=== PATIENT | female | born 1985 | race Caucasian/White ===

== ENCOUNTER → 2018-09-26 | Outpatient (CLI) | payer OTHER ==
[2018-09-26 16:03] LABS: BASO % 1 % (0-3); EOS # 0.1 x10^3/uL (0.0-0.7); EOS % 1 % (0-3); HEMATOCRIT 38.9 % (36.0-47.0); HEMOGLOBIN 12.4 g/dL (12.0-15.5); LYMPH # 1.3 x10^3/uL (1.0-4.8); LYMPH % 24 % (24-48); MEAN CORPUSCULAR HEMOGLOBIN 27 pg (25-35); MEAN CORPUSCULAR HGB CONC 32 g/dL (31-37); MEAN CORPUSCULAR VOLUME 85 fL (79-100); MONO # 0.7 x10^3/uL (0.0-1.1); MONO % 12 % (0-9); NEUT # 3.4 x10^3uL (1.8-7.7); NEUT % 62 % (31-73); PLATELET COUNT 190 x10^3/uL (140-400); RED BLOOD COUNT 4.58 x10^6/uL (3.50-5.40); RED CELL DISTRIBUTION WIDTH 13.1 % (11.5-14.5); WHITE BLOOD COUNT 5.4 x10^3/uL (4.0-11.0)
[2018-09-26 16:27] LABS: ALBUMIN 3.6 g/dL (3.4-5.0); ALBUMIN/GLOBULIN RATIO 1.1 (1.0-1.7); CALCIUM 8.5 mg/dL (8.5-10.1); CREATININE 0.9 mg/dL (0.6-1.0); GFR 71.3; POTASSIUM 3.9 mmol/L (3.5-5.1); TOTAL BILIRUBIN 0.2 mg/dL (0.2-1.0)
--- NOTE | 2018-09-27 10:04 | NUR ---
FAXED PRE - OP TEST REPORTS TO FOR REVIEW 09/27/2018 AT 0985 AND RECEIVED TRANSMITTAL CONFIRMATION.
== END | disposition home or self-care (01) ==
LOC: SURGPAT 14:50
PROVIDERS: ATTEND Obstetrics & Gynecology
DX: N92.0 Excessive and frequent menstruation with regular cycle (principal)
CPT/HCPCS: 36415; 80053; 85025

== ENCOUNTER 2018-10-09 08:41 | Observation (INO) | payer OTHER ==
[2018-10-08 17:30] VITALS: BP 113/67
[~2018-10-09] VITALS: Ht 175.3 cm; Wt 73.6 kg
[~2018-10-09 08:41] MED LIST: BUPIVACAINE-EPI 0.25%-1:200000 MPF 30 ML VIAL. ONE; DEXAMETHASONE SOD PHOS 4 MG/ML VIAL ONE; HYDROmorphone 2 MG/ML VIAL IV PRN; LIDOCAINE 2% PF 5 ML VIAL. ONE; MIDAZOLAM HCL/PF 2 MG/2 ML VIAL. ONE; MORPHINE SULFATE 2 MG/ML VIAL. IV PRN; ONDANSETRON PF 4 MG/2 ML VIAL. IV PRN; ONDANSETRON PF 4 MG/2 ML VIAL. ONE; PROCHLORPERAZINE 10 MG/2 ML VIAL. IV PRN; PROPOFOL 20 ML IV ONE; ROCURONIUM 50 MG/5 ML VIAL. ONE; fentaNYL PF VIAL 100 MCG/2 ML VIAL IV PRN; fentaNYL PF VIAL 100 MCG/2 ML VIAL ONE
[2018-10-09] MEDS ORDERED: ESTROGENS, CONJ VAGINAL CREAM 30GM TUBE. ONE (08:57)
[2018-10-09] MEDS ORDERED: METHYLENE BLUE 1% 10 ML VIAL. ONE (08:57)
[2018-10-09] MEDS ORDERED: BUPIVACAINE-EPI 0.25%-1:200000 MPF 30 ML VIAL. ONE (08:58)
[2018-10-09 09:16] LABS: U PREG PATIENT NEGATIVE (NEG)
[2018-10-09] MEDS: IV RINGERS,LACTATED 1000ML 1,000 ML IV SCH ×2 (09:30→13:05)
[2018-10-09] MEDS ORDERED: GLYCOPYRROLATE 1 MG/5 ML VIAL. ONE (11:45)
[2018-10-09] MEDS ORDERED: NEOSTIGMINE 10 MG/10 ML VIAL. ONE (11:45)
[2018-10-09] MEDS ORDERED: KETOROLAC 30 MG/ML INJ FOR OR. INJ ONE (11:46)
[2018-10-09] MEDS ORDERED: HYDROcodone/APAP 5/325MG 1 TAB TABLET PO PRN (12:00)
[2018-10-09] MEDS ORDERED: MAG HYDROX/ALUMINUM HYD/SIMETH 30 ML ORAL.SUSP PO PRN (12:00)
[2018-10-09] MEDS ORDERED: MORPHINE SULFATE 2 MG/ML VIAL. IV PRN (12:00)
[2018-10-09] MEDS ORDERED: oxyCODONE/APAP 5/325 1 TAB TABLET PO PRN (12:00)
[2018-10-09] MEDS ORDERED: ZOLPIDEM 5 MG TABLET. PO PRN (12:00)
[2018-10-09] MEDS ORDERED: NALOXONE 0.4 MG/ML VIAL. IV PRN (12:00)
[2018-10-09] MEDS ORDERED: CALCIUM CARBONATE 500 MG TAB.CHEW PO PRN (12:00)
[2018-10-09] MEDS ORDERED: 0.9 % SODIUM CHLORIDE 10 ML DISP.SYRIN. IV PRN (12:00)
[2018-10-09] MEDS ORDERED: MAGNESIUM HYDROXIDE 2,400 MG/30 ML ORAL.SUSP. PO PRN (12:00)
[2018-10-09] MEDS ORDERED: LACTULOSE 20 GM/30 ML SOLUTION. PO PRN (12:00)
[2018-10-09] MEDS ORDERED: diphenhydrAMINE HCL 25 MG CAPSULE PO PRN (12:00)
[2018-10-09] MEDS ORDERED: KETOROLAC 30 MG/ML VIAL. IV PRN (12:00)
[2018-10-09] MEDS ORDERED: ceFAZolin 2GM PREMIX 2 GM/50 ML BAG IV ONE (12:00)
[2018-10-09] MEDS ORDERED: SIMETHICONE 80 MG TAB.CHEW PO PRN (12:00)
[2018-10-09] MEDS ORDERED: ONDANSETRON PF 4 MG/2 ML VIAL. IV PRN (12:00)
[2018-10-09] MEDS ORDERED: diphenhydrAMINE 50 MG/ML VIAL IV PRN (12:00)
[2018-10-09] MEDS ORDERED: SEVOFLURANE > 120 MINUTES. IH ONE (12:01)
--- NOTE | 2018-10-09 12:09 | PDOC ---
BRIEF OPERATIVE NOTE Date: October 09, 2018 Pre-Op Diagnosis known endometriosis, menorrhagia, dysmenorrhea Post-Op Diagnosis same plus left sided adhesions Procedure Performed LAVH/LSO/right salpingectomy/ adhesiolysis Surgeon Dr. Saranya Walker Wound Care Technician DAPHNE Henson Anesthesiologist Dr. Bello Anesthesia Type: General Blood Loss 100cc IV Fluid see anesthesia records Urine Output 100cc clear via abdullahi Specimens Obtained cervix, uterus, left tube/ovary, right tube Findings bowel adhesions covering left tube/ovary; mildly enlarged RV uterus, normal right tube and ovary Complications none Operative Note [id number] SARANYA WALKER MD October 09, 2018 12:09
[2018-10-09 13:15] VITALS: BP 93/54
[2018-10-09 13:30] VITALS: BP 112/65
[2018-10-09 13:45] VITALS: BP 108/64
[2018-10-09 14:00] VITALS: BP 102/66
--- NOTE | 2018-10-09 15:50 | OP ---
DATE OF SURGERY: 10/09/2018 PREOPERATIVE DIAGNOSES: Known endometriosis with menorrhagia and dysmenorrhea. POSTOPERATIVE DIAGNOSES: Known endometriosis with menorrhagia and dysmenorrhea plus left-sided bowel adhesions covering the left tube and ovary. PROCEDURE: Laparoscopic-assisted vaginal hysterectomy, left salpingo-oophorectomy, right salpingectomy, and adhesiolysis. SURGEON: Mak Walker MD. MANAGER ENGINE: Camryn Perez RN, cutting table operator first. ANESTHESIOLOGIST: Gene Hadley MD. ANESTHESIA: General. ESTIMATED BLOOD LOSS: 100 mL. URINE OUTPUT: 100 mL clear via Muse catheter. IV FLUIDS: Please see anesthesia records, but I believe it is 700 mL of crystalloid. SPECIMEN OBTAINED: Cervix, uterus, left tube and ovary, right tube. FINDINGS: She had bowel adhesions covering the left tube and ovary down to the left sidewall and over the left round ligament, mildly enlarged retroverted uterus, normal right tube and ovary. COMPLICATIONS: None. DESCRIPTION OF PROCEDURE: This patient was taken to the operating room where general anesthesia was placed. The patient was placed in dorsal lithotomy position in [facility]. The patient's abdomen and vagina were prepped and draped in the normal sterile fashion and a Muse catheter had been inserted under sterile technique. Upon my arrival, a timeout was performed where everyone agreed. She had received her antibiotics and went through her procedure, allergies and everything. Once everything was agreed upon, a bivalve speculum was placed in the patient's vagina. A single-tooth tenaculum was used to grasp the anterior lip of the cervix. A 10 mL of 0.25% local was placed in the cervix circumferentially for both hemodissection and hemostatic purposes later. The Valtchev uterine manipulator was placed through the endocervical os, locked on the single tooth tenaculum and the bivalve speculum was then removed. Top gloves were discarded and changed. Attention was then turned to the abdomen where a small supraumbilical skin incision was made over the previous scar from her laparoscopic cholecystectomy. A curved Susan was used to dissect through the subcuticular layer down to the fascia. The 5 mm Visiport was used to directly enter the abdominal cavity. Opening patient pressure was 2-3 mmHg. Carbon dioxide gas was used to then appropriately insufflate the abdominal cavity to maintain a pressure of 15 mmHg. The patient was placed in Trendelenburg position. Right and left lower quadrant ports were placed under direct visualization after transilluminating the abdominal wall, finding an area clear of any vasculature and both sides were clear of any adhesions. So finding the areas clear, making a small incision and placing the 5 mm disposable atraumatic trocar under direct visualization. Then, 4 mL of air was placed in the cuff of each of those. At this point, the camera was moved laterally to look at the umbilical port. It was clear as well and so that cuff was filled with 4 mL of air as well. The camera was moved back to the midline. At this point, the [place] was used to take down some of the adhesions on the left side as I could not even see the left tube and ovary with the bowel adhesions over it initially. I took down enough of the adhesions to get the left tube and ovary up that was adhesed to that IP ligament and I did go ahead and take the left tube and ovary. I found the ureter coursing low below it, stayed high on the IP ligament and took the left tube and ovary, crossing the infundibulopelvic ligament, staying right under the ovary and then crossing the left round ligament. The right tube and ovary were completely free and normal. I found the ureter coursing low there. I stayed above the ovary below the tube and the left the right ovary per patient requested, did a salpingectomy and then crossed the right round ligament and the right uteroovarian pedicle leaving again the right ovary. The bladder flap was then taken down and created sharply using the monopolar tip. Once it was down, the uterine vessels were obtained on both sides and going down, staying on the cervix through the cardinal and broad ligaments with the LigaSure. The uterus was blanched and free. All instruments were removed from the abdomen and attention was turned vaginally. The single tooth and Valtchev were removed. A weighted speculum was placed in the patient's vagina. Thyroid Floyd clamps were used to grasp the anterior and posterior lips of the cervix respectively. A scalpel was used to make a circumferential incision in the cervix. The posterior cul-de-sac was sharply entered with the Messina scissors and a #0 Vicryl stitch was used to secure the posterior peritoneum here to the vaginal cuff and it was tagged with a curved Susan clamp and the needle was cut and passed off. The short weighted vaginal speculum was removed and replaced with the long weighted Brian speculum in the posterior cul-de-sac. An open Ray-Maeve 4 x 4 was used to gently push up the anterior bladder peritoneum. Curved Aneesh clamps x 2 were placed on the patient's left uterosacral ligament where they were doubly clamped with curved Aneesh's, cut with curved Messina scissors and suture ligated x 2 with 0 Vicryl. Second one was taken through the vaginal cuff securing uterosacral ligament to the vaginal cuff and tagging it with a straight Susan clamp and cutting and passing the needle off. This was done exactly the same on the patient's right side, double clamping the uterosacral with curved Aneesh's, cutting with Messina scissors and suture ligating x 2 with #0 Vicryl, again taking the second one through the vaginal cuff and tagging it with a straight Susan clamp and cutting and passing the needle off. The left side was actually completely free and we were in anteriorly, so the 4 x 4 was removed from the anterior cul-de-sac. The remaining pedicle on the right side was delineated with a curved mixture and the vaginal LigaSure was used to cauterize and cut this in a stepwise fashion until it was free. The cervix, uterus, right tube and left tube and ovary were delivered in total and passed off for permanent pathology. A sponge stick was used to examine the pedicles, which appeared hemostatic. The long Allis was used to grasp the anterior bladder peritoneum. The 2-0 Vicryl was taken through the anterior bladder peritoneum, left uterosacral ligament, posterior peritoneum and right uterosacral ligament, thus closing the peritoneum in a pursestring like fashion. Once this was done, the right and left uterosacral tags were clipped and the cuff was closed in an anterior to posterior running locked fashion with a full length 2-0 Vicryl and tied to that posterior cuff tag. Once this was done and it was hemostatic and reexamined, all instruments were removed vaginally and all sponge, lap and needle counts were correct x 2 by OR personnel. Once this was done, all gloves were discarded and changed and attention was turned back above for a second look. Gas was reinsufflated. The patient was placed back in Trendelenburg position. Copious irrigation revealed hemostasis. Tisseel was placed over the vaginal cuff and the right side where the ovary was. The left side was hemostatic where it came out. There were still some left-sided adhesions, but the ligament on that side looked good and the remaining pedicles looked dry, so copious irrigation revealed hemostasis and Tisseel was placed over this with excellent results. The right and left lower quadrant ports, air was taken out of the trocars and those were removed under direct visualization. They were hemostatic. Gas was released from the umbilical port. The gas was removed from the trocar and it was removed as well. All three port sites were being closed with 4-0 nylon at the skin and the patient is currently being awakened from anesthesia. MAK WALKER MD DR: ZENON/sharda JOB#: [id number] / [id number]
--- NOTE | 2018-10-09 16:00 | NUR ---
pt unable to void up to toilet 2X pt to be straight cathed 150cc of dark sendy returned
[2018-10-09 17:30] VITALS: BP 113/67
[2018-10-09] MEDS: IBUPROFEN 200 MG TABLET. PO PRN (20:25)
[2018-10-09 23:18] VITALS: BP 129/71
[2018-10-10 04:19] LABS: CALCIUM 8.9 mg/dL (8.5-10.1); GFR 63.1; POTASSIUM 4.1 mmol/L (3.5-5.1)
[2018-10-10] MEDS: IBUPROFEN 200 MG TABLET. PO PRN (05:13)
[2018-10-10 05:49] VITALS: BP 124/79
--- NOTE | 2018-10-14 14:06 | PATHOLOGY ---
[facility] Accession Number: [id number] . 01 Material submitted: . uterus - UTERUS, CERVIX, LEFT FALLOPIAN TUBE AND OVARY, AND RIGHT FALLOPIAN TUBE . 01 Clinical history: . Menorrhagia, dysmenorrhagia, endometriosis, dyspareunia . 02 Diagnosis: Uterus with attached left fallopian tube and ovary and attached and detached segments of right fallopian tube, laparoscopic assisted vaginal hysterectomy with left salpingo-oophorectomy and right salpingectomy: -Presence of intrauterine device. -Slightly disordered proliferative endometrium showing low-grade chronic endometritis. -Adenomyosis, uterine corpus, subbasal, focal, with mild myometrial hypertrophy (uterine weight 147 grams). -Focal recent hemorrhage and coagulative changes of posterior cul-de-sac serosa - negative for endometriosis. -Congestion of bilateral fallopian tubes. -Left paratubal cyst. -Cystic follicles of ovary. (JPM:[facility] 10/14/2018) [facility]/10/14/2018 . 02 Comment: There is no atypia or evidence of malignancy. (JPM:[facility] 10/14/2018) . 02 Electronically signed: . John Blair MD, Pathologist NPI- [id number] . 01 Gross description: . The specimen is received in formalin, labeled ", Shana Luna, uterus with cervix, left fallopian tube and ovary, right fallopian tube", is an unopened, pyriform uterus with attached left adnexa and right nonfimbriated fallopian tube segment weighing 147 g in toto. The uterine corpus with attached cervix (10.5 x 5.5 x 4.5 cm), attached left adnexa (ovary = 4.7 x 2.8 x 1.5 cm and fallopian 9.0 cm length and up to 0.4 cm in diameter) and right nonfimbriated attached fallopian tube segment 4.7 cm in length and up to 0.4 cm in diameter and detached, fimbriated segment 3.2 cm in length and up to 0.4 cm in diameter. The serosa is smooth. The anterior paracervical soft tissue is inked blue. The ectocervix has a surface diameter of 3.1 x 2.8 cm and a 1.2 cm slit-like os. The ectocervical mucosa is batista-pink and smooth with the mucosa surrounding external os is irregular and hemorrhagic. The 3.3 cm long x 0.7 cm wide endocervical canal is covered with batista-pink, herringbone mucosa. The endometrial cavity has a Copper T IUD. The endometrial cavity is triangular 7.0 cm long x 2.4 cm wide, and covered with batitsa-pink, lush endometrium of up to 0.7 cm thickness and 2.0 cm in maximum height. The batista-pink mildly trabeculated myometrium measures up to 1.8 cm in thickness and has no discrete nodules. The left ovary has a batista-ayala cerebriform and cystic external surface. The cut surfaces are white-ayala, with a well-defined, multiple white nodules resembling corpora albicantia. There are few intraparenchymal cyst with a smooth lining and filled with clear fluid. The bilateral fallopian tube has pink-batista serosa without adhesions to the ovary. The fimbriae are normal in configuration. There is a 1.2 cm clear fluid-filled cyst, attached to the left fallopian tube serosa. The lumen is patent and focally dilated with associated thinning of the wall. Joint Cutter Machine sections submitted as follows: A1. Anterior cervix. A2. Posterior cervix. A3-A5. Anterior endomyometrium. (From lower uterine segment to fundus) A6 -A9. Posterior endomyometrium. (From fundus to lower uterine segment), (A7-A8 = single slice, bisected with the maximum height of mucosa in A7) A10. Right attached nonfimbriated fallopian tube. A11. Right unattached fimbriated fallopian tube. A12-A13. Left ovary. A14. Left fimbriated fallopian tube and paratubal cyst. A15-A16. Posterior cul-de-sac. (SWS; 10/10/2018) SHS/SHS . 02 Pathologist provided ICD-10: N71.1, N80.0, N85.9 . 02 CPT . 224025 Specimen Comment: A courtesy copy of this report has been sent to Specimen Comment: [phone]. Specimen Comment: Report sent to Performed at: 01 [facility] [address] [place] [address] [address], [place] [id number] MD Bar Shankar MD Phone: [phone] Performed at: 02 [facility] [address], [place] [id number] MD John Blair MD Phone: [phone]
== END 2018-10-10 11:01 | disposition home or self-care (01) ==
LOC: SURG 08:41 → EDUNIT# 10:15 → 3 NORTH 12:00
PROVIDERS: ADMIT Obstetrics & Gynecology; ATTEND Obstetrics & Gynecology
DX: N92.0 Excessive and frequent menstruation with regular cycle (principal); N94.10 Unspecified dyspareunia; N94.6 Dysmenorrhea, unspecified; K66.0 Peritoneal adhesions (postprocedural) (postinfection); N80.1 Endometriosis of ovary
CPT/HCPCS: 36415; 58550; 80048; 81025; 85014; 86850; 86900; 86901; 88307; 96374; A7015; G0378; G0379; J0696; J0780; J1100; J1885; J2001; J2250; J2704; J2710; J3010; J3490; J7030; J7120; J2405; Q9968